=== PATIENT | female | born 1960 | race American Indian/Alaskan Native ===

== ENCOUNTER 2018-11-09 13:00 | Outpatient (CLI) | payer BC ==
--- NOTE | 2018-11-09 14:46 | XRay Report ---
ROUTINE CHEST, TWO VIEWS: HISTORY: Positive PPD. The trachea, heart, mediastinal contour, lung moreno and bony thorax are unremarkable. No evidence for cavitating lesion or adenopathy to suggest tuberculosis in the chest. IMPRESSION: Unremarkable chest x-ray.
== END 2018-11-09 13:01 | disposition home or self-care (01) ==
LOC: XRAY 13:00
PROVIDERS: ATTEND Family Medicine
DX: R76.11 Nonspecific reaction to tuberculin skin test without active tuberculosis (principal)
CPT/HCPCS: 71046